=== PATIENT | female | born 1975 | race Two or more races ===

== ENCOUNTER 2019-11-21 12:33 | Emergency (ER) | payer OTHER ==
[~2019-11-21] VITALS: Ht 160 cm; Wt 75.7 kg
[2019-11-21] MEDS ORDERED: SYNTHROID75 MCG PO (13:21)
== END 2019-11-21 17:28 | disposition home or self-care (01) ==
LOC: ER 12:33
DX: N83.291 Other ovarian cyst, right side (principal); R10.31 Right lower quadrant pain

== ENCOUNTER 2024-05-28 02:59 | Emergency (ER) | payer OTHER ==
[~2024-05-28] VITALS: Ht 162.6 cm; Wt 77.1 kg
[~2024-05-28 02:59] MED LIST: SYNTHROID75 MCG PO
== END 2024-05-28 03:45 | disposition home or self-care (01) ==
LOC: ER 03:00
DX: S01.112A Laceration without foreign body of left eyelid and periocular area, initial encounter (principal); W45.8XXA Other foreign body or object entering through skin, initial encounter; Y93.89 Activity, other specified; Y92.89 Other specified places as the place of occurrence of the external cause; Y99.9 Unspecified external cause status

== ENCOUNTER → 2024-06-02 | Emergency (ER) | payer OTHER ==
[~2024-06-02] VITALS: Ht 160 cm; Wt 77.1 kg
== END | disposition home or self-care (01) ==
LOC: ER 11:34
DX: Z48.02 Encounter for removal of sutures (principal)